=== PATIENT | male | born 1980 | race Caucasian/White ===

== ENCOUNTER 2017-12-27 07:38 | Emergency (ER) | payer BC ==
[2017-12-27 07:47] VITALS: BP 149/88
--- NOTE | 2017-12-27 15:17 | ED ---
Upper Extremity Pain - HPI Summary HPI Summary: Patient is a 37-year-old male presenting to the ED with right shoulder pain 2 days. He states 2 days ago he was making repetitive motion overhead movements with the right arm and now is developing pain over the right anterior and right superior shoulder most notably over the rotator cuff. Denies any numbness or tingling in the ipsilateral arm. Denies any color or temperature changes. He is otherwise healthy and has never injured the shoulder in the past. - History of Current Complaint Chief Complaint: EDShoulderClavicGabi Stated Complaint: RT SHOULDER PAIN Time Seen by Provider: 12/27/17 08:02 Hx Obtained From: Patient Onset/Duration: Started Days Ago Timing: Constant Severity Initially: Moderate Severity Currently: Moderate Pain Location: Shoulder Character: Aching Aggravating Factor(s): Movement, Abduction, Other - overhead motions Alleviating Factor(s): Nothing Associated Signs & Symptoms: Positive: Negative Related History: Dominant Hand Right - Risk Factors Non-Orthopedic Risk Factor: Negative DVT Risk Factors: Negative Septic Arthritis Risk Factor: Negative Compartment Syndrome Risk Factors: Pain - Allergies/Home Medications Allergies/Adverse Reactions: Allergies Allergy/AdvReac Type Severity Reaction Status Date / Time No Known Allergies Allergy Verified 12/27/17 07:46 PMH/Surg Hx/FS Hx/Imm Hx Previously Healthy: Yes - Surgical History Surgery Procedure, Year, and Place: adenoids removed; finger repair L 2nd finger - Immunization History Hx Pertussis Vaccination: No Immunizations Up to Date: Unable to Obtain/Confirm Infectious Disease History: No Infectious Disease History: Denies: Traveled Outside the [place] in Last 30 Days - Family History Known Family History: Positive: Unknown - Social History Occupation: Employed Full-time Lives: With Family Alcohol Use: Occasionally Hx Substance Use: No Substance Use Type: Reports: None Hx Tobacco Use: No Smoking Status (MU): Never Smoked Tobacco Review of Systems Constitutional: Negative Negative: Fever, Chills, Fatigue, Skin Diaphoresis Negative: Palpitations, Chest Pain Negative: Shortness Of Breath, Cough Genitourinary: Negative Positive: no symptoms reported, see HPI Positive: Arthralgia, Myalgia Skin: Negative Neurological: Negative All Other Systems Reviewed And Are Negative: Yes Physical Exam Triage Information Reviewed: Yes Vital Signs On Initial Exam: Initial Vitals Temp Pulse Resp BP Pulse Ox 97.9 F 98 18 149/88 98 12/27/17 07:43 12/27/17 07:43 12/27/17 07:43 12/27/17 07:43 12/27/17 07:43 Vital Signs Reviewed: Yes Appearance: Positive: Well-Appearing, Well-Nourished Skin: Positive: Warm, Skin Color Reflects Adequate Perfusion Head/Face: Positive: Normal Head/Face Inspection Eyes: Positive: EOMI Neck: Positive: Supple, No Lymphadenopathy Respiratory/Lung Sounds: Positive: Clear to Auscultation, Breath Sounds Present Cardiovascular: Positive: Normal, RRR, Pulses are Symmetrical in both Upper and Lower Extremities Musculoskeletal: Positive: Pain @ - anterior and superior shoulder Neurological: Positive: Speech Normal Psychiatric: Positive: Affect/Mood Appropriate Diagnostics - Vital Signs Vital Signs Temp Pulse Resp BP Pulse Ox 12/27/17 07:43 97.9 F 98 18 149/88 98 - Laboratory Lab Statement: Any lab studies that have been ordered have been reviewed, and results considered in the medical decision making process. Course/Dx - Course Course Of Treatment: During the course treatment, the patient is evaluated for right shoulder injury. Due to the mechanism of injury, likely shoulder impingement syndrome versus rotator cuff tendinitis. I discussed with the patient obtaining an x-ray, however this will most likely not change our course of treatment. Patient declines x-ray at this time as he does not feel the area is fractured. I have also offered a sling to which she declines. He is encouraged ice and heat intermittently, ibuprofen and follow-up with orthopedic clinic. Neer test positive, unable to abduct, symptoms are better with abduction. - Diagnoses Provider Diagnoses: Right shoulder pain Discharge - Sign-Out/Discharge Documenting (check all that apply): Discharge/Admit/Transfer - Discharge Plan Condition: Stable Disposition: HOME Prescriptions: Cyclobenzaprine TAB* [Flexeril TAB*] 10 mg PO BID PRN #10 tab MDD 2 PRN Reason: Spasms Patient Education Materials: Rotator Cuff Injury (ED), Rotator Cuff Tendinitis (ED), Adhesive Capsulitis (ED) Referrals: Raman Obregon MD [Medical Doctor] - No Primary Care Phys,NOPCP [Primary Care Provider] - Additional Instructions: You may have a rotator cuff tendinopathy or a shoulder impingement syndrome. I have given you information on all we have talked about today Repetitive activity at or above the shoulder during work or sports represents the main risk factor for shoulder impingement syndrome. SIS is common among athletes who participate in overhead sports Ice and heat intermittently in the first 2-3 days, then you will want moist heat to the area Rest This means avoiding activities that aggravate symptoms, including all overhead activities. Nonsteroidal antiinflammatory drugs (NSAIDs) For acute injuries, I recommend a short course (ie, 7 to 10 days) of scheduled NSAID therapy. Call orthopedic clinic for an appt. You may need to be referred to physical therapy as well if impingment or adhesive capsulitis is present Massage may help as long as there is no discomfort - Billing Disposition and Condition Condition: STABLE Disposition: Home
== END 2017-12-27 08:53 | disposition home or self-care (01) ==
LOC: ED 07:38
DX: M25.511 Pain in right shoulder (principal)
CPT/HCPCS: 99282